=== PATIENT | female | born 2000 ===

== ENCOUNTER 2025-08-28 19:47 | Outpatient (REF) | payer OTHER, SELFPAY ==
[2025-09-01 15:26] LABS: B.holmesii DNA Not Detected (NotDetected)
== END 2025-08-28 19:48 | disposition home or self-care (01) ==
LOC: LBN 19:47
PROVIDERS: Visit Provider Physician Assistant Medical
DX: J02.9 Acute pharyngitis, unspecified (principal); Z20.818 Contact with and (suspected) exposure to other bacterial communicable diseases
CPT/HCPCS: 87798; 87070